=== PATIENT | female | born 1970 | race Caucasian/White ===

== ENCOUNTER → 2016-07-20 18:31 | Outpatient (CLI) | payer MEDICAID ==
[2015-08-11 12:41] VITALS: BMI 19.4
[~2016-07-20 18:31] MED LIST: ACETAMINOPHEN500 M1 PO; CELEXA20 MG PO; DEPO-MEDROL40 MG/ML; DILAUDID2 MG PO; ELIQUIS2.5 MG PO; IBUPROFEN400 MG PO; MIDOL CAPLET1 EACH PO; PERCOCET 10/3251 TA1 PO
== END | disposition home or self-care (01) ==
LOC: D.LABREF 18:31
DX: M17.12 Unilateral primary osteoarthritis, left knee (principal); Z11.8 Encounter for screening for other infectious and parasitic diseases

== ENCOUNTER 2016-07-29 08:30 | Inpatient (IN) | payer MEDICAID ==
[~2016-07-29] VITALS: Ht 167.6 cm; Wt 54.5 kg
[~2016-07-29 08:30] MED LIST changes: -DEPO-MEDROL40 MG/ML; -PERCOCET 10/3251 TA1 PO
[2016-07-29 08:45] LABS: BASOPHILS 0.6 % (0.0-2.0); EOSINOPHILS 2.8 % (0-7); HEMATOCRIT 40.2 % (36.0-48.0); HEMOGLOBIN 13.6 g/dL (12-16); IMMATURE GRANULOCYTES 0.1 % (0-5); LYMPHOCYTES 22.3 % (15-50); MCH 31.2 pg (26.0-34.0); MCHC 33.8 g/dL (31.0-37.0); MCV 92.2 fL (80.0-100.0); MEAN PLATELET VOLUME 10.2 fL (7.4-10.4); MONOCYTES 7.4 % (2-11); NEUTROPHILS 66.8 % (40-80); RBC 4.36 10x6/uL (4.00-5.40); RDW 12.7 % (11.5-14.5); WBC 7.1 10x3/uL (4.8-10.8)
[2016-07-29 08:47] LABS: PLATELET COUNT 293 10x3/uL (130-400)
[2016-07-29 08:52] LABS: APTT 31.8 SECONDS (22.8-39.4); INR 0.97 (0.85-1.17); PROTIME 12.8 SECONDS (11.6-15.0)
[2016-07-29 08:56] LABS: CALC OSMOLALITY 273 mosm/kg (275-300); CALCIUM 9.2 mg/dL (8.5-10.1); CARBON DIOXIDE 28.6 mmol/L (21.0-32.0); CHLORIDE - SERUM 102 mmol/L (98-107); CREATININE - SERUM 0.8 mg/dL (0.6-1.3); GLUCOSE 98 mg/dL (74-106); POTASSIUM - SERUM 3.4 mmol/L (3.5-5.1); SODIUM 138 mmol/L (136-145); UREA NITROGEN 8 mg/dL (7-18); eGFR NON AFRICAN AMERICAN 81 mL/min (90-120)
[2016-07-29 09:03] LABS: APPEARANCE HAZY (CLEAR); BILIRUBIN NEGATIVE (NEGATIVE); COLOR YELLOW (YELLOW); GLUCOSE NEGATIVE (NEGATIVE); KETONE NEGATIVE (NEGATIVE); LEUKOCYTE ESTERASE NEGATIVE (NEGATIVE); NITRITE NEGATIVE (NEGATIVE); PROTEIN NEGATIVE (NEGATIVE); UROBILINOGEN NORMAL (NORMAL)
[2016-07-29 09:04] LABS: BACTERIA MODERATE /hpf (NONE SEEN); MUCUS >1+ /lpf (NONE SEEN); WHITE CELLS - URINE 0-5 /hpf (0-5)
[2016-08-02] VITALS (11 sets, daily range): BP systolic 93–126; BP diastolic 52–77; Ht 167.6 cm; Wt 54.5 kg
[2016-08-02] MEDS ORDERED: DEPO-MEDROL40 MG/ML (08:37)
--- NOTE | 2016-08-02 10:51 | NUR ---
LEFT FOOT AND LEG WASHED WITH HIBICLENS AND ALCOHOL PRIOR TO CHLORPREP PER D.N.
--- NOTE | 2016-08-02 13:45 | NUR ---
PATIENT IS RESTING QUIETLY WITH EYE CLOSED.
--- NOTE | 2016-08-02 18:57 | OP ---
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 PROCEDURE: Left total knee arthroplasty. SURGEON: Chicho Redmond MD. ANESTHESIA: General. INTRAOPERATIVE COMPLICATIONS: None. SUMMARY OF PATHOLOGIC FINDINGS: The patient did indeed have the area of previously placed large osteochondral allograft with good hyaline cartilage albeit depressed upon further operative intervention. The patient was indeed found to have an area of deep necrosis causing the patient's pain. OPERATIVE SUMMARY IN DETAIL: After obtaining the appropriate preoperative orthopedic surgery consents as well as anesthetic consultation, evaluation and clearance, the patient was brought to the operating room and placed in the operating table in supine position. After adequate general laryngeal mask airway was administered, tourniquet was placed about the proximal aspect of the left lower extremity. Left lower extremity was then prepped and draped in a routine sterile fashion. The leg was elevated, exsanguinated and tourniquet was inflated to 350 mmHg. Routine midline incision was taken down for paramedian arthrotomy. Patella was everted in an excellent overall healthy condition. Soft tissue excision was done in the usual fashion. Distal intramedullary guide hole was created for distal femoral cutting. Distal femur was cut. Proximal tibia was exposed. Soft tissue excision was again done in the usual fashion. A guide hole was created in the proximal tibia for intramedullary guided proximal tibia cut. Proximal tibia cut was made. Appropriate measurements were taken. Chamfer cuts were made on the femur. At this point, the knee cavity was irrigated, the press-fit tibial baseplate was put into place with excellent snug fit. This was followed by placement of the polyethylene liner and the femoral components. The knee was taken down and taken through range of motion and found to be stable in all planes. Final implants used iCouch triathlon press fit distal femur size 4, X3 4 x 9 polyethylene insert and a size 4 tibial baseplate press fit Yoko triathlon. Having completed the range of motion, paramedian arthrotomy was closed with #2 Ethibond followed by 2-0 Vicryl and skin mitul. Sterile dressings were applied. The patient was awakened and taken to the recovery room in stable condition. All final needle and sponge counts were correct. TRANSINT:[id number] Voice Confirmation ID: [id number] DOCUMENT ID: [id number] OPERATIVE REPORT [id number] OFELIA DHILLON MD, CHICHO OLIVEIRA at 1857 CC: [id number] DICTATION DATE: 08/02/16 1150 LEGEND MAKER: 08/02/16 1543 ADM IN [place] [id number] [place] [address]
--- NOTE | 2016-08-02 19:20 | NUR ---
RECIEVED SHIFT REPORT. PT IS LYING IN BED. ALERT AND ORIENTED AND ABLE TO VERBALIZE NEEDS. IV IS PATENT AND FLUIDS ARE RUNNING PER ORDER. SCD'S ON. CPM MACHINE ON. PT DENIES ANY PAIN AT THIS TIME. DRESSING TO LEFT KNEE C/D/I. NO NEEDS ARE VERBALIZED AT THIS TIME. VISITOR AT BEDSIDE. WILL CONTINUE TO MONITOR. SIDE RAILS ARE UP X 2. BED IS IN LOWEST POSITION. BED ALARM IS ON FOR SAFETY. CALL LIGHT IS WITHIN REACH.
--- NOTE | 2016-08-02 20:39 | NUR ---
SHIFT ASSESSMENT COMPLETED. NIGHT MEDS GIVEN WITH NO PROBLEMS. NO NEEDS ARE VOICED. VISITOR AT BEDSIDE. WILL MONITOR. SIDE RAILS X 2. BED LOW. BED ALARM ON. CALL LIGHT IN REACH.
[2016-08-03] VITALS: BP 104/66
[2016-08-03 04:00] VITALS: BP 89/43
[2016-08-03 05:37] LABS: HEMATOCRIT 32.4 % (36.0-48.0); HEMOGLOBIN 10.9 g/dL (12-16); MCH 30.9 pg (26.0-34.0); MCHC 33.6 g/dL (31.0-37.0); MCV 91.8 fL (80.0-100.0); MEAN PLATELET VOLUME 10.3 fL (7.4-10.4); RBC 3.53 10x6/uL (4.00-5.40); RDW 12.6 % (11.5-14.5); WBC 16.4 10x3/uL (4.8-10.8)
[2016-08-03 08:38] VITALS: BP 106/58
[2016-08-03 13:04] VITALS: BP 107/57
--- NOTE | 2016-08-03 15:59 | NUR ---
* Is the patient Alert and Oriented? Yes 0 * How many steps to enter\exit or inside your home? 4 0 * PCP Uses walk in clinics 0 * Pharmacy [facility] 0 * Preadmission Environment Home with Family 0 * ADLs Independent 0 * Equipment Rolling Walker 0 * List name and contact numbers for known caregivers / representatives who currently or will assist patient after discharge: Spouse - Jerry [phone] or [phone] 0 * Additional services required to return to the preadmission environment? Yes 0 * Can the patient safely return to the preadmission environment? Yes 0 * Has this patient been hospitalized within the prior 30 days at any hospital? No 08/03/2016 15:59 DCP: Discharge Planning Patient Name: OFELIA DHILLON Admission Status: Elective Accout number: [id number] Admission Date: 08-02-2016 : 1970 Admission Diagnosis: Attending: STEVENSON Current LOS: 1 Anticipated DC Date: 08-04-2016 Planned Disposition: Outpatient PT\OT Primary Insurance: [facility] PRIVATE OPTIONS [facility] Discharge Planning Comments: CM met with patient to assess dc plans/needs. Patient states she lives at home with her , 2 daughters & sons in law, & 6 grandchildren. She reports she was independent with all ADL's prior to admission. She has a walker at home. A CPM has been ordered through [facility] by MD office and will be delivered to the hospital prior to discharging home. Patient has used [facility] in the past and wants to use them for outpatient physical therapy [place]. Appt. scheduled for 08/06 @ 1600. OP PT Rx faxed. Anticipate dc 08/04. CM will follow. Leather Belt Shaper: Zoya Ovalle
[2016-08-03 17:07] VITALS: BP 100/47
--- NOTE | 2016-08-03 19:15 | NUR ---
RECIEVED SHIFT REPORT. PT IS LYING IN BED. ALERT AND ORIENTED AND ABLE TO VERBALIZE NEEDS. IV IS PATENT AND SALINE LOC AT THIS TIME. SCD'S ON. CPM ON. DRESSING TO LEFT KNEE C/D/I. PT IS AMBULATORY WITH ASSISTANCE. PT DENIES ANY PAIN AT THIS TIME. NO NEEDS ARE VERBALIZED AT THIS TIME. WILL CONTINUE TO MONITOR. SIDE RAILS ARE UP X 2. BED IS IN LOWEST POSITION. BED ALARM IS ON FOR SAFETY. CALL LIGHT IS WITHIN REACH.
[2016-08-03 20:00] VITALS: BP 105/66
--- NOTE | 2016-08-03 20:32 | NUR ---
SHIST ASSESSMENT COMPLETED. NIGHT MEDS GIVEN WITH NO PROBLEMS. NO NEEDS ARE VOICED. WILL MONITOR. SIDE RAILS X 2. BED LOW. CALL LIGHT IN REACH.
[2016-08-04] VITALS: BP 110/68
[2016-08-04 04:00] VITALS: BP 111/60
[2016-08-04 05:49] LABS: HEMATOCRIT 32.1 % (36.0-48.0); HEMOGLOBIN 10.8 g/dL (12-16); MCH 31.3 pg (26.0-34.0); MCHC 33.6 g/dL (31.0-37.0); MEAN PLATELET VOLUME 10.5 fL (7.4-10.4); RBC 3.45 10x6/uL (4.00-5.40); RDW 12.9 % (11.5-14.5)
[2016-08-04 06:05] LABS: WBC 9.7 10x3/uL (4.8-10.8)
--- NOTE | 2016-08-04 07:10 | NUR ---
PATIENT RECEIVED IN HIGH CASTRO POSITION RESTING WITH EYES CLOSED. RESPIRATIONS EVEN AND UNLABORED. SIDE RAILS UP X2. BED IN LOW POSITION. CALL LIGHT IN REACH.
--- NOTE | 2016-08-04 08:09 | NUR ---
PATIENT IN BED RESTING QUIETLY WITH EYES CLOSED. RESPIRATIONS EVEN AND UNLABORED. WAKES EASY. CPM REMOVED. SCHEDULED MEDICATION ADMINISTERED WELL PRN PERCOCET FOR PAIN 08/23. SIDE RAILS UP X2. BED IN LOW POSITION. CALL LIGHT IN REACH.
[2016-08-04 08:40] VITALS: BP 110/67
[2016-08-04] MEDS ORDERED: PERCOCET 10/3251 TA1 PO (08:44)
[2016-08-04] MEDS ORDERED: ELIQUIS2.5 MG PO (08:44)
--- NOTE | 2016-08-04 10:43 | NUR ---
08/04/2016 10:42 DCP: Discharge Planning Patient Name: OFELIA DHILLON Encounter No: [id number] : 1970 Primary Insurance: [employer] [place] PRIVATE OPTIONS [facility] Anticipated DC Date: 08-04-2016 Planned Disposition: Outpatient PT\OT External Planned Provider: Nesha BUSCH DCP follow-up note: DC order rec'd. Patient and family in agreement with discharge plan. No changes to plan. CPM will be delivered to hospital per patient request. Zyoa Ovalle
--- NOTE | 2016-08-04 12:25 | NUR ---
SITTING UP IN CHAIR ALERT EATING LUNCH. TOLERATING WELL. DENIES NEEDS. CALL LIGHT IN REACH.
[2016-08-04 12:43] VITALS: BP 109/62
--- NOTE | 2016-08-04 12:55 | NUR ---
IV TO RIGHT HAND D/C WITH CATH TIP INTACT. SITE COVERED WITH GAUZE AND BANDAID.
--- NOTE | 2016-08-04 15:00 | NUR ---
PATIENT SITTING UP IN CHAIR RESTING WITH EYES CLOSED. RESPIRATIONS EVEN AND UNLABORED. CALL LIGHT IN REACH.
--- NOTE | 2016-08-04 16:25 | NUR ---
D/C TEACHING AND WRITTEN PRESCRIPTIONS PROVIDED. PATIENT STATES UNDERSTANDING. DENIES QUESTIONS.
[2016-08-04 16:26] VITALS: BP 108/67
--- NOTE | 2016-08-04 16:30 | NUR ---
PATIENT D/C HOME WITH FAMILY. TRANSFERRED DOWNSTAIRS VIA WHEELCHAIR.
== END 2016-08-04 16:40 | disposition home or self-care (01) | DRG 470 ==
LOC: D.SDCHOLD 08-02 06:56 → D.MS 08-02 06:56 → D.SDCHOLD 08-02 08:30 → D.MS 08-02 12:12
PROVIDERS: ADMIT Orthopaedic Surgery
PROC: 0SRD0JA Replacement of Left Knee Joint with Synthetic Substitute, Uncemented, Open Approach (ICD-10-PCS; principal; 2016-08-02 09:30)
DX: M93.262 Osteochondritis dissecans, left knee (principal); F17.200 Nicotine dependence, unspecified, uncomplicated

== ENCOUNTER 2017-05-01 20:11 | Emergency (ER) | payer MEDICARE ==
[2016-08-02 13:32] VITALS: BMI 19.4
[~2017-05-01 20:11] MED LIST changes: +DEPO-MEDROL40 MG/ML; +PERCOCET 10/3251 TA1 PO
== END 2017-05-01 21:22 | disposition home or self-care (01) ==
LOC: D.ER 20:11
DX: J20.9 Acute bronchitis, unspecified (principal); J06.9 Acute upper respiratory infection, unspecified; F17.200 Nicotine dependence, unspecified, uncomplicated

== ENCOUNTER 2017-08-16 21:36 | Emergency (ER) | payer MEDICARE ==
[2016-08-02 13:32] VITALS: BMI 19.4
[2017-08-16 22:41] LABS: BASOPHILS 0.3 % (0-2); HEMATOCRIT 36.6 % (36.0-48.0); HEMOGLOBIN 12.5 g/dL (12-16); IMMATURE GRANULOCYTES 0.3 % (0-5); LYMPHOCYTES 31.9 % (15-50); MCH 31.5 pg (26.0-34.0); MCHC 34.2 g/dL (31.0-37.0); MCV 92.2 fL (80.0-100.0); MEAN PLATELET VOLUME 10.5 fL (7.4-10.4); MONOCYTES 10.4 % (2-11); NEUTROPHILS 54.1 % (40-80); PLATELET COUNT 249 10x3/uL (130-400); RBC 3.97 10x6/uL (4.00-5.40); RDW 12.5 % (11.5-14.5); WBC 10.3 10x3/uL (4.8-10.8)
[2017-08-16 22:50] LABS: ALBUMIN 3.6 g/dL (3.4-5.0); ANION GAP 10.2 mmol/L (8-16); BILIRUBIN - TOTAL 0.3 mg/dL (0.2-1.3); CALCIUM 8.9 mg/dL (8.5-10.1); CARBON DIOXIDE 30.2 mmol/L (21.0-32.0); CREATININE - SERUM 0.9 mg/dL (0.6-1.3); POTASSIUM - SERUM 3.4 mmol/L (3.5-5.1); PROTEIN - SERUM 7.2 g/dL (6.4-8.2)
[2017-08-16 23:18] LABS: HCG URINE NEGATIVE (NEGATIVE)
[2017-08-16 23:23] LABS: APPEARANCE CLEAR (CLEAR); BILIRUBIN NEGATIVE (NEGATIVE); COLOR YELLOW (YELLOW); GLUCOSE NEGATIVE (NEGATIVE); KETONE NEGATIVE (NEGATIVE); NITRITE NEGATIVE (NEGATIVE); PROTEIN NEGATIVE (NEGATIVE); SPECIFIC GRAVITY 1.015 (1.005-1.020); UROBILINOGEN NORMAL (NORMAL)
[2017-08-16 23:24] LABS: BACTERIA FEW /hpf (NONE SEEN); EPITHELIAL CELLS 0-5 /hpf (0-5); RED CELLS - URINE 0-5 /hpf (0-5); WHITE CELLS - URINE NSEEN /hpf (0-5)
== END 2017-08-17 02:34 | disposition home or self-care (01) ==
LOC: D.ER 21:36
PROVIDERS: Family Medicine
DX: R10.31 Right lower quadrant pain (principal)

== ENCOUNTER 2018-08-12 18:03 | Inpatient (IN) | payer MEDICARE ==
[~2018-08-12] VITALS: Ht 167.6 cm; Wt 77.3 kg
[2018-08-12 18:39] LABS: BASOPHILS 0.2 % (0-2); HEMATOCRIT 38.2 % (36.0-48.0); HEMOGLOBIN 13.2 g/dL (12-16); IMMATURE GRANULOCYTES 0.2 % (0-5); LYMPHOCYTES 12.9 % (15-50); MCH 30.8 pg (26.0-34.0); MCHC 34.6 g/dL (31.0-37.0); MEAN PLATELET VOLUME 10.7 fL (7.4-10.4); MONOCYTES 7.2 % (2-11); NEUTROPHILS 78.5 % (40-80); PLATELET COUNT 273 10x3/uL (130-400); RBC 4.29 10x6/uL (4.00-5.40); RDW 13.1 % (11.5-14.5); WBC 11.1 10x3/uL (4.8-10.8)
[2018-08-12 18:52] LABS: ALBUMIN 3.8 g/dL (3.4-5.0); ALKALINE PHOSPHATASE 116 U/L (46-116); ALT (SGPT) 13 U/L (10-68); BILIRUBIN - TOTAL 0.46 mg/dL (0.2-1.3); CALC OSMOLALITY 277 mosm/kg (275-300); CALCIUM 9.2 mg/dL (8.5-10.1); CARBON DIOXIDE 28.5 mmol/L (21.0-32.0); CHLORIDE - SERUM 102 mmol/L (98-107); CREATININE - SERUM 0.8 mg/dL (0.6-1.3); GLUCOSE 108 mg/dL (74-106); POTASSIUM - SERUM 3.7 mmol/L (3.5-5.1); PROTEIN - SERUM 7.6 g/dL (6.4-8.2); SODIUM 140 mmol/L (136-145); UREA NITROGEN 6 mg/dL (7-18); eGFR NON AFRICAN AMERICAN 80 mL/min (90-120)
[2018-08-12 18:55] LABS: AMYLASE - SERUM 18 U/L (25-115); LIPASE 87 U/L (73-393); TROPONIN-I < 0.017 ng/mL (0.000-0.060)
[2018-08-12 19:13] LABS: APPEARANCE CLEAR (CLEAR); BILIRUBIN NEGATIVE (NEGATIVE); COLOR YELLOW (YELLOW); EPITHELIAL CELLS 0-5 /hpf (0-5); GLUCOSE NEGATIVE (NEGATIVE); KETONE NEGATIVE (NEGATIVE); NITRITE NEGATIVE (NEGATIVE); PROTEIN NEGATIVE (NEGATIVE); RED CELLS - URINE 0-5 /hpf (0-5); UROBILINOGEN NORMAL (NORMAL); WHITE CELLS - URINE NSEEN /hpf (0-5)
[2018-08-12 20:00] VITALS: BP 109/57
[2018-08-12 20:30] VITALS: BP 127/72
--- NOTE | 2018-08-12 21:40 | NUR ---
ADMITTED TO ROOM FROM ER ALERT AND ORIENTIATED, REPORTS ABD PAIN STARTING THIS MORNING, INSTRUCTED THAT WAS SCHEDULED TO HAVE APPENDIX OUT IN AM SO NOTHING TO EAT OR DRINK AFTER MN. VERBALIZED UNDERSTANDING, ORIENTIATED TO ROOM CALL LIGHT IN REACH, AT BEDSIDE. MORPHINE INFORMATION DIRECTOR STARTED ORDERED FOR PAIN CONTROL
[2018-08-12 23:32] VITALS: BP 115/67; BMI 27.5
[2018-08-13] VITALS (25 sets, daily range): BP systolic 79–159; BP diastolic 41–70; Ht 167.6 cm; Wt 77.3 kg
[2018-08-13 05:53] LABS: ANION GAP 11.8 mmol/L (8-16); BILIRUBIN - TOTAL 0.5 mg/dL (0.2-1.3); CALCIUM 7.9 mg/dL (8.5-10.1); CARBON DIOXIDE 27.4 mmol/L (21.0-32.0); POTASSIUM - SERUM 3.2 mmol/L (3.5-5.1); PROTEIN - SERUM 6.3 g/dL (6.4-8.2)
[2018-08-13 05:55] LABS: BASOPHILS 0.2 % (0-2); EOSINOPHILS 1.1 % (0-7); HEMATOCRIT 33.1 % (36.0-48.0); HEMOGLOBIN 11.2 g/dL (12-16); IMMATURE GRANULOCYTES 0.2 % (0-5); LYMPHOCYTES 18.1 % (15-50); MCH 30.6 pg (26.0-34.0); MCHC 33.8 g/dL (31.0-37.0); MCV 90.4 fL (80.0-100.0); MEAN PLATELET VOLUME 10.7 fL (7.4-10.4); MONOCYTES 10.4 % (2-11); PLATELET COUNT 240 10x3/uL (130-400); RBC 3.66 10x6/uL (4.00-5.40); RDW 13.3 % (11.5-14.5); WBC 10.7 10x3/uL (4.8-10.8)
--- NOTE | 2018-08-13 07:10 | NUR ---
PT IS RESTING IN BED WITH EYES OPEN. RESPIRATIONS ARE EVEN AND UNLABORED. FAMILY IS AT BEDSIDE. PT REPORTS PAIN IN ABDOMEN, SALES ADVISOR IS AVAILABLE. PT DENIES PRESENCE OF N/V AT THIS TIME. BED IS IN THE LOWEST POSITION. CALL LIGHT AND BEDSIDE TABLE ARE WITHIN REACH. WILL CONT TO MONITOR.
[2018-08-13] MEDS ORDERED: HYDROCODON-ACE1 EAC7 PO (08:25)
--- NOTE | 2018-08-13 09:52 | NUR ---
PT RETURNS TO ROOM FROM PROCEDURE VIA BED TRANSPORTED BY HOSPITAL STAFF. PT IS RESTING WITH EYES CLOSED, BUT IS EASILY AROUSED WITH VERBAL STIMULATION. PT REPORTS SLIGHT PAIN, BUT DENIES NEEDS AT THIS TIME. LAP SITES X 3 NOTED TO ABDOMEN. STERI STRIPS ARE C/D/I. VSS. SEE FLOWSHEET. BED IS IN THE LOWEST POSITION. CALL LIGHT AND BEDSIDE TABLE ARE WITHIN REACH. WILL CONT TO MONITOR.
--- NOTE | 2018-08-13 11:18 | NUR ---
INCENTIVE SPIROMETER BROUGHT TO PT. EDUCATION GIVEN TO PT ON PROPER USE OF IMPORTANCE OF I.S. PT VERBALIZES UNDERSTANDING.
--- NOTE | 2018-08-13 12:59 | NUR ---
MODERATE AMOUNT OF SEROUS DRAINAGE NOTED TO LLQ LAP SITE. 4X4 PLACED. PT REPORTS PAIN AT SIGHT BUT DENIES NEEDS AT THIS TIME. PT IS SITTING IN BED WITH FOOD TRAY WITHIN REACH. FAMILY IS AT BEDSIDE. PT DENIES PRESENCE OF N/V AT THIS TIME. BED IS IN THE LOWEST POSITION. CALL LIGHT AND BEDSIDE TABLE ARE WITHIN REACH. WILL CONT TO MONITOR.
--- NOTE | 2018-08-13 14:22 | NUR ---
PT HYPOTENSIVE AT THIS TIME. MODERATE AMOUNT OF SEROUS DRAINAGE NOTED TO LLQ LAP SITE. DRESSING APPLIED. SEE FLOWSHEET FOR BP. DR JOHNSON PAGED TO NOTIFY OF DRAINAGE AND CURRENT BP. WILL CONT TO CLOSELY MONITOR.
--- NOTE | 2018-08-13 15:01 | NUR ---
FEET ARE ELEVATED. BOLUS IS INFUSING WITHOUT DIFFICULTY. PT IS AAO X 4. BED IS IN THE LOWEST POSITION. CALL LIGHT AND BEDSIDE TABLE ARE WITHIN REACH. FAMILY IS AT BEDSIDE. SODA GIVEN PER PT REQUEST. WILL CONT TO CLOSELY MONITOR.
[2018-08-13 15:32] LABS: BASOPHILS 0 % (0-2); EOSINOPHILS 0 % (0-7); HEMATOCRIT 35.5 % (36.0-48.0); HEMOGLOBIN 11.9 g/dL (12-16); IMMATURE GRANULOCYTES 0.3 % (0-5); LYMPHOCYTES 4.5 % (15-50); MCH 30.8 pg (26.0-34.0); MCHC 33.5 g/dL (31.0-37.0); MONOCYTES 0.9 % (2-11); NEUTROPHILS 94.3 % (40-80); PLATELET COUNT 265 10x3/uL (130-400); RBC 3.86 10x6/uL (4.00-5.40); RDW 13.4 % (11.5-14.5)
[2018-08-13 15:38] LABS: WBC 14.6 10x3/uL (4.8-10.8)
--- NOTE | 2018-08-13 15:50 | NUR ---
ABDOMINAL CIRCUMFERENCE IS 39". LAB INTERN NOTIFIED OF NEED FOR ABDOMINAL BINDER.
--- NOTE | 2018-08-13 20:00 | NUR ---
ALERT ORIENTIATED SITTING UP IN BED REPORTS MILD ABD INCISION PAIN, INSTRUCTED HAD RECIEVED TORDOL AND BLOOD PRESSURE STILL RUNNIGN A LITTLE LOW WILL CONTINUE TO MONITOR, CALL LIGHT IN REACH IV INFUSING WITHOUT DIFFICULTY
[2018-08-13 21:11] LABS: BASOPHILS 0 % (0-2); EOSINOPHILS 0 % (0-7); HEMATOCRIT 29.9 % (36.0-48.0); HEMOGLOBIN 10.1 g/dL (12-16); IMMATURE GRANULOCYTES 0.1 % (0-5); LYMPHOCYTES 4.4 % (15-50); MCHC 33.8 g/dL (31.0-37.0); MCV 91.7 fL (80.0-100.0); MEAN PLATELET VOLUME 10.5 fL (7.4-10.4); MONOCYTES 3.4 % (2-11); NEUTROPHILS 92.1 % (40-80); PLATELET COUNT 226 10x3/uL (130-400); RBC 3.26 10x6/uL (4.00-5.40); RDW 13.2 % (11.5-14.5)
[2018-08-13 21:12] LABS: WBC 10.9 10x3/uL (4.8-10.8)
--- NOTE | 2018-08-13 22:30 | NUR ---
BLOOD PRESSURE REMAING LOW AT 87/44 INSTRUCTED NEED TO LIE DOWN IN BED AND TO CALL FOR ASSISTANCE BP RECHECKED AT 96/49
[2018-08-14 00:01] VITALS: BP 87/44
[2018-08-14 00:30] VITALS: BP 91/50
[2018-08-14 01:30] VITALS: BP 91/46
[2018-08-14 02:30] VITALS: BP 102/50
[2018-08-14 05:11] VITALS: BP 101/54
[2018-08-14 05:11] LABS: BASOPHILS 0 % (0-2); EOSINOPHILS 0 % (0-7); HEMOGLOBIN 10.3 g/dL (12-16); IMMATURE GRANULOCYTES 0.2 % (0-5); LYMPHOCYTES 7.4 % (15-50); MCH 30.6 pg (26.0-34.0); MCHC 33.2 g/dL (31.0-37.0); MEAN PLATELET VOLUME 11.7 fL (7.4-10.4); NEUTROPHILS 84.4 % (40-80); RBC 3.37 10x6/uL (4.00-5.40); RDW 13.1 % (11.5-14.5); WBC 12.1 10x3/uL (4.8-10.8)
[2018-08-14 05:30] LABS: PLATELET COUNT 168 10x3/uL (130-400)
--- NOTE | 2018-08-14 07:40 | NUR ---
ALERT AND ORIENTED X3. LUNGS CLEAR BILATERALLY IN ALL GAMEZ. HEART SOUNDS HEARD AT S1 AND S2 IN ALL GAMEZ. BOWEL SOUNDS HEARD X4. STATES LAST BM SATURDAY 08/12 BEFORE COMING TO HOSPITAL. B/P 102/66, HR 81. ABD INCISION SITES X3 C/D/I. SKIN INTACT WITHOUT REDNESS. IV TO RIGHT AC PATENT WITHOUT REDNESS. STATES PAIN LEVEL 5/10. NO FURTHER NEEDS AT THIS TIME. REPOSITIONED IN BED WITH PILLOW BEHIND BACK TO HELP WITH BACK SORENESS. WILL CONTINUE TO MONITOR.
[2018-08-14 08:44] VITALS: BP 114/57
--- NOTE | 2018-08-14 09:16 | NUR ---
PATIENT GIVEN PRN NORCO FOR ABD PAIN 09/22. DRSG SITE TO LLQ C/D/I WITHOUT REDNESS NOTED. DENIES FURTHER NEEDS.
--- NOTE | 2018-08-14 10:09 | NUR ---
PATIENT SLEEPING. WILL CONTINUE TO MONITOR.
--- NOTE | 2018-08-14 11:34 | NUR ---
DISCHARGE INSTRUCTIONS PROVIDED BOTH WRITTEN AND VERBAL. PATIENT VERBALIZED UNDERSTANDING. EDUCATION PROVIDED ON LOW BLOOD PRESSURE AND TO SIT AND PUT FEET UP IF FEELING DIZZY WHILE STANDING. IV TO RIGHT AC REMOVED WITH TIP INTACT. PATIENT DENIES FURTHER QUESTIONS. STATES RIDE WILL BE TO GET HER AFTER LUNCH.
--- NOTE | 2018-08-14 12:40 | NUR ---
SITTING IN BED EATING LUNCH. STATES DAUGHTER IS ON HER WAY TO PEDIATRIC HOSPITALIST.
--- NOTE | 2018-08-14 13:24 | NUR ---
PATIENT DISCHARGED HOME WITH DAUGHTER. ALL BELONGINGS SENT WITH PATIENT
== END 2018-08-14 13:25 | disposition home or self-care (01) | DRG 343 ==
LOC: D.ER 18:03 → D.EDHOLD 21:06 → D.MS 21:06
PROVIDERS: Family Medicine; ADMIT Surgery; ATTEND Surgery
PROC: 0DTJ4ZZ Resection of Appendix, Percutaneous Endoscopic Approach (ICD-10-PCS; principal; 2018-08-13 08:00)
DX: K35.30 Acute appendicitis with localized peritonitis, without perforation or gangrene (principal)